=== PATIENT | male | born 1985 | race Caucasian/White ===

== ENCOUNTER 2017-04-04 20:49 | Emergency (ER) | payer OTHER ==
[~2017-04-04] VITALS: Ht 180.3 cm; Wt 88.5 kg
[2017-04-04 21:13] VITALS: BP 119/81
--- NOTE | 2017-04-04 22:40 | NUR ---
PATIENT TO BED 6 AT THIS TIME.
[2017-04-04] MEDS ORDERED: KETOROLAC 60 MG/2 ML VIAL IM ONE (23:00)
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
[2017-04-05] VITALS: BP 119/81
--- NOTE | 2017-04-05 | NUR ---
Patient discharged with v/s stable. Written and verbal after care instructions given and explained. Patient alert, oriented and verbalized understanding of instructions. Ambulatory with steady gait. All questions addressed prior to discharge. ID band removed. Patient advised to follow up with PMD. Rx of NORCO AND MOTRIN given. Patient educated on indication of medication including possible reaction and side effects. Opportunity to ask questions provided and answered.
== END 2017-04-05 | disposition home or self-care (01) ==
LOC: MED 20:49
DX: S13.4XXA Sprain of ligaments of cervical spine, initial encounter (principal); S20.20XA Contusion of thorax, unspecified, initial encounter; F17.210 Nicotine dependence, cigarettes, uncomplicated; V49.49XA Driver injured in collision with other motor vehicles in traffic accident, initial encounter; Y93.89 Activity, other specified; Y92.488 Other paved roadways as the place of occurrence of the external cause; Y99.8 Other external cause status
CPT/HCPCS: 96372; 99283; J1885

== ENCOUNTER 2018-12-15 13:53 | Emergency (ER) | payer OTHER ==
[~2018-12-15] VITALS: Ht 180.3 cm; Wt 83.9 kg
[2018-12-15 14:04] VITALS: BP 119/74
--- NOTE | 2018-12-15 14:47 | NUR ---
PT TO ER BED 12
--- NOTE | 2018-12-15 14:50 | NUR ---
BIB SELF C/O R THUMB AND FOREARM LACERATION. PT STATES HAND WENT THROUGH GLASS DOOR WHILE TRYING TO OPEN IT. LACERATION ON THUMB APPROXIMATELY 3INX0.5INCH. LACERATION ON FOREARM APPROXIMATELY 4 [id number]. BLEEDING CONTROLLED WITH BANDAGE. PT STATES NO PAIN AT THIS TIME. BED IS DOWN, LOCKED, BED RAIL X 1, ERMD NOTIFIED OF PATIENT STATUS.
--- NOTE | 2018-12-15 15:05 | NUR ---
DR TOVAR AT BEDSIDE
[2018-12-15] MEDS ORDERED: SILVER NITRATE APPLICATOR 1 EA SWAB TP ONE (15:46)
--- NOTE | 2018-12-15 15:58 | NUR ---
SILVER NITRATE AND LIDOCAINE AT BEDSIDE EDMD AWARE
--- NOTE | 2018-12-15 16:00 | NUR ---
SILVADENE 1% CREAM APPLIED BY DR. TOVAR AT 1600 REASSESED AT 1620, NADR.
--- NOTE | 2018-12-15 16:00 | NUR ---
EDMD AT BEDSIDE PERFORMING LAC REPAIR
[2018-12-15] MEDS ORDERED: LIDOCAINE/EPI 1% 1:100000 20 ML VIAL INJ ONE (16:05)
--- NOTE | 2018-12-15 16:20 | NUR ---
SILVER NITRATE APPLICATOR APPLIED BY DR. TOVAR AT 1537 REASSESSED AT 1600, NADR. LIDOCAINE WITH EPI [id number] APPLIED BY DR. TOVAR AT 1557 REASSESSED AT 1620, NADR.
[2018-12-15] MEDS ORDERED: SILVER SULFADIAZINE 1% 50 GM JAR TP ONE (16:38)
[2018-12-15 17:45] VITALS: BP 121/72
--- NOTE | 2018-12-15 17:46 | NUR ---
Patient discharged with v/s stable. Written and verbal after care instructions given and explained. Patient alert, oriented and verbalized understanding of instructions. Ambulatory with steady gait. All questions addressed prior to discharge. ID band removed. Patient advised to follow up with PMD. Rx of keflex, motrin given. Patient educated on indication of medication including possible reaction and side effects. Opportunity to ask questions provided and answered.
--- NOTE | 2018-12-15 17:46 | NUR ---
patient sent home with instructions on wound care. pt states he has no further questions. cap refill <3 seconds. palpable radial pulses.
[2018-12-17] MEDS ORDERED: LIDOCAINE/EPI 1% 1:100000 20 ML VIAL INJ ONE (11:15)
[2018-12-17] MEDS ORDERED: SILVER NITRATE APPLICATOR 1 EA SWAB TP ONE (11:15)
[2018-12-17] MEDS ORDERED: SILVER SULFADIAZINE 1% 50 GM JAR TP ONE (11:15)
== END 2018-12-15 17:46 | disposition home or self-care (01) ==
LOC: MED 13:53
DX: S61.011A Laceration without foreign body of right thumb without damage to nail, initial encounter (principal); W25.XXXA Contact with sharp glass, initial encounter; Y93.89 Activity, other specified; Y92.89 Other specified places as the place of occurrence of the external cause; Y99.8 Other external cause status
CPT/HCPCS: 12002; 99283; J2001

== ENCOUNTER 2018-12-16 12:12 | Emergency (ER) | payer OTHER ==
[~2018-12-16] VITALS: Ht 180.3 cm; Wt 83.9 kg
--- NOTE | 2018-12-16 12:16 | NUR ---
PT AMBULATED TO ER BED 09
[2018-12-16 12:18] VITALS: BP 116/72
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
--- NOTE | 2018-12-16 12:30 | NUR ---
EDMD AT BEDSIDE PERFORMING MSE
[2018-12-16 13:00] VITALS: BP 130/75
--- NOTE | 2018-12-16 13:00 | NUR ---
Patient discharged with v/s stable. Written and verbal after care instructions given and explained. Patient verbalized understanding. Ambulatory with steady gait. All questions addressed prior to discharge. Advised to follow up with PMD IN 2-3 DAYS FOR WOUND RECHECK.
== END 2018-12-16 13:00 | disposition home or self-care (01) ==
LOC: MED 12:12
DX: S61.011D Laceration without foreign body of right thumb without damage to nail, subsequent encounter (principal); S51.811D Laceration without foreign body of right forearm, subsequent encounter; F17.200 Nicotine dependence, unspecified, uncomplicated; X58.XXXD Exposure to other specified factors, subsequent encounter
CPT/HCPCS: 99281

== ENCOUNTER 2018-12-20 11:23 | Emergency (ER) | payer OTHER ==
[~2018-12-20] VITALS: Ht 180.3 cm; Wt 83.9 kg
[2018-12-20 11:45] VITALS: BP 122/78
--- NOTE | 2018-12-20 11:45 | NUR ---
PATIENT AMBULATED TO ER BED 9.
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
[2018-12-20 13:30] VITALS: BP 135/72
== END 2018-12-20 13:30 | disposition home or self-care (01) ==
LOC: MED 11:23
DX: S51.811D Laceration without foreign body of right forearm, subsequent encounter (principal); S61.001D Unspecified open wound of right thumb without damage to nail, subsequent encounter; W25.XXXD Contact with sharp glass, subsequent encounter
CPT/HCPCS: 99283